=== PATIENT | male | born 1940 | race Caucasian/White ===

== ENCOUNTER 2016-09-06 08:53 | Inpatient (IN) ==
--- NOTE | 2016-09-06 10:07 | Emergency Department Note ---
Fall HPI - General Chief Complaint: Fall Stated Complaint: hip pain from fall Time Seen by Provider: 09/06/16 09:22 Source: patient Mode of arrival: ambulatory - History of Present Illness HPI Narrative: Patient presents with significant other, caregiver. States fall while attempting to transfer to bedside commode. One of several of the last week. Difficulty getting up, pain left pelvis. Additionally, mild confusion with apparent closed head injury, abrasion over the left worship. Patient reports generalized weakness, unable to care for himself at home. states in agreement, reports patient has been staying "I'm ready to ". Hospice consult completed yesterday, does not feel that she can provide the care at home that would be required. Requesting consideration for shelter placement. Generalized weakness, incomplete recovery from hospitalization several weeks ago , extended workup for altered mental status with decreased responsiveness at [facility]. Records requested. - Related Data Home Medications Medication Instructions Recorded Confirmed Pramipexole [Mirapex] 0.5 mg PO TID 01/25/15 09/06/16 Sevelamer [Renvela] 800 mg PO TIDAC 01/25/15 09/06/16 traZODone HCL [Desyrel] 50 mg PO HS 01/25/15 09/06/16 fluoxetine 20 mg tablet 2 tab PO QDAY tab 03/25/15 09/06/16 morphine 15 mg PO Q4HP PRN 04/30/16 09/06/16 Albuterol Sulfate [Proair 90 mcg IH DAILY 08/25/16 09/06/16 Respiclick] Ascorbic Acid [Vitamin C] 250 mg PO DAILY 08/25/16 09/06/16 Budesonide/Formoterol Fumarate 2 puff INH BID 08/25/16 09/06/16 [Symbicort 160-4.5 Mcg Inhaler] Calcium Carbonate [Tums] 750 mg PO AC 08/25/16 09/06/16 Estrogens, Conjugated [Premarin] 5 mg PO DAILY 08/25/16 09/06/16 Furosemide [Lasix] 20 mg PO DAILY 08/25/16 09/06/16 traMADol [Ultram] 50 mg PO TID 08/25/16 09/06/16 Gabapentin [Neurontin] 100 mg PO 09/06/16 Allergies Allergy/AdvReac Type Severity Reaction Status Date / Time No Known Drug Allergies Allergy Verified 09/06/16 09:00 Review of Systems All systems ED: reviewed and negative except as stated. Constitutional: Reports: weakness. Denies: fever, chills Eyes: Denies: eye discharge, vision change Respiratory: Denies: cough, dyspnea Gastrointestinal: Denies: abdominal pain, nausea Fall PMH - Past Medical History Attestation: Yes: The following information was validated with the patient. Medical history: Reports: cancer (melanoma), CHF, COPD, diabetes, hyperlipidemia , hypertension, renal disease (dialysis dependent), other (dialysis pt, recent blood transfusion, MS) - Social History Alcohol use: Reports: Unknown Drug use: Reports: unknown Physical Exam - General Limitations: no limitations General appearance: other (slowed mentation, but alert oriented to person and place) - Head Head exam: other (abrasion left worship, hemostatic) - Eye Eye exam: Present: normal appearance, PERRL - ENT ENT exam: normal exam, mucous membranes dry - Neck Neck exam: Present: full ROM. Absent: tenderness - Chest Chest inspection: Present: normal inspection - Respiratory Respiratory exam: Present: normal lung sounds bilaterally. Absent: respiratory distress - Cardiovascular Cardiovascular exam: Present: regular rate, normal rhythm - Abdominal Exam Abdominal exam: Present: soft. Absent: tenderness - Extremities Exam Extremities exam: Present: normal inspection, other (no leg length discrepancy, chronic 3+ edema) - Back Exam Back exam: Present: normal inspection - Neurological Exam Neurological exam: Present: alert - Psychiatric Psychiatric exam: Present: flat affect - Skin Skin exam: Present: warm, dry, intact Course Vital Signs Temperature 97.4 F L 09/06/16 08:54 Pulse Rate 79 09/06/16 08:54 Respiratory Rate 18 09/06/16 08:54 Blood Pressure 94/51 09/06/16 08:54 Pulse Oximetry (%) 90 09/06/16 08:54 Temperature 97.4 F L 09/06/16 08:54 Pulse Rate 80 09/06/16 14:54 Respiratory Rate 18 09/06/16 08:54 Blood Pressure 95/51 09/06/16 14:54 Pulse Oximetry (%) 99 09/06/16 14:54 Fall - Lab Data Lab results reviewed: Yes I reviewed the patient's lab results. Result diagrams: 09/06/16 10:05 09/06/16 09:50 Lab Results 09/06/16 09/06/16 09/06/16 Range/Units 09:50 10:05 10:05 WBC 6.6 (4.5-11.0) K/mcL RBC 2.50 L (4.50-5.90) M/mcL Hgb 7.4 L (13.5-16.5) g/dL Hct 24.1 L (41.0-55.0) % POC Hct 25.0 L (41.0-55.0) % MCV 96.5 (80.0-100.0) fL MCH 29.8 (26.0-34.0) pg MCHC 30.8 L (31.0-36.0) g/dL RDW 23.8 H (11.5-14.5) % Plt Count 196 (140-440) K/mcL MPV 9.0 (7.4-10.4) fL Gran % 85.2 H (38.0-78.0) % Lymph % (Auto) 4.6 L (15.5-49.0) % Winkler % (Auto) 5.0 (1.0-9.0) % Eos % (Auto) 5.2 (0.0-7.0) % Baso % (Auto) 0 (0.0-2.0) % Gran # 5.7 (1.8-8.0) K/mcL Lymph # 0.3 L (1.5-4.8) K/mcL Winkler # 0.3 (0.1-0.9) K/mcL Eos # 0.3 (0.0-0.7) K/mcL Baso # 0 (0.0-0.3) K/mcL VBG Lactic Acid 1.0 (0.5-2.2) mmol/L POC Sodium 141 (133-145) mmol/L Sodium 140 (133-145) mmol/L POC Potassium 5.0 (3.3-5.1) mmol/L Potassium 5.2 H (3.3-5.1) mmol/L POC Chloride 100 (96-108) mmol/L Chloride 100 (96-108) mmol/L Carbon Dioxide 29 (22-30) mmol/L POC Total CO2 32 H (22-30) mmol/L Anion Gap 11.0 (8-16) POC BUN 45 H (8-23) mg/dl BUN 31 H (8-23) mg/dl Creatinine 4.3 H (0.7-1.2) mg/dl POC Creatinine 4.2 H (0.7-1.2) mg/dl GFR Calculation 12 Glucose 84 (70-105) mg/dL POC Glucose 85 (70-105) mg/dL Calcium 8.2 L (8.6-10.4) mg/dl POC WB Ioniz Calcium 0.97 L (1.16-1.32) mmol/L Total Bilirubin 0.2 (0.0-1.0) mg/dL AST 22 (0-37) U/l ALT 12 (0-40) U/l Alkaline Phosphatase 68 (39-117) U/L Troponin T (0-0.03) ng/ml Total Protein 5.9 (5.9-8.4) gm/dL Albumin 3.3 (3.2-5.2) gm/dL Globulin 2.6 (2.2-3.7) gm/dL Albumin/Globulin Ratio 1.3 (1.0-2.3) 09/06/16 Range/Units 10:05 WBC (4.5-11.0) K/mcL RBC (4.50-5.90) M/mcL Hgb (13.5-16.5) g/dL Hct (41.0-55.0) % POC Hct (41.0-55.0) % MCV (80.0-100.0) fL MCH (26.0-34.0) pg MCHC (31.0-36.0) g/dL RDW (11.5-14.5) % Plt Count (140-440) K/mcL MPV (7.4-10.4) fL Gran % (38.0-78.0) % Lymph % (Auto) (15.5-49.0) % Winkler % (Auto) (1.0-9.0) % Eos % (Auto) (0.0-7.0) % Baso % (Auto) (0.0-2.0) % Gran # (1.8-8.0) K/mcL Lymph # (1.5-4.8) K/mcL Winkler # (0.1-0.9) K/mcL Eos # (0.0-0.7) K/mcL Baso # (0.0-0.3) K/mcL VBG Lactic Acid (0.5-2.2) mmol/L POC Sodium (133-145) mmol/L Sodium (133-145) mmol/L POC Potassium (3.3-5.1) mmol/L Potassium (3.3-5.1) mmol/L POC Chloride (96-108) mmol/L Chloride (96-108) mmol/L Carbon Dioxide (22-30) mmol/L POC Total CO2 (22-30) mmol/L Anion Gap (8-16) POC BUN (8-23) mg/dl BUN (8-23) mg/dl Creatinine (0.7-1.2) mg/dl POC Creatinine (0.7-1.2) mg/dl GFR Calculation Glucose (70-105) mg/dL POC Glucose (70-105) mg/dL Calcium (8.6-10.4) mg/dl POC WB Ioniz Calcium (1.16-1.32) mmol/L Total Bilirubin (0.0-1.0) mg/dL AST (0-37) U/l ALT (0-40) U/l Alkaline Phosphatase (39-117) U/L Troponin T 0.27 H* (0-0.03) ng/ml Total Protein (5.9-8.4) gm/dL Albumin (3.2-5.2) gm/dL Globulin (2.2-3.7) gm/dL Albumin/Globulin Ratio (1.0-2.3) - Radiology Data Radiology results reviewed: Yes I reviewed the patient's radiology results. right periHilar infiltrate - EKG Data EKG attestation: Yes I reviewed and interpreted this EKG. Disposition Clinical Impression: Multiple sclerosis, primary chronic progressive, Generalized weakness, Chronic kidney disease with end stage renal failure on dialysis Right middle lobe pneumonia Qualifiers: Pneumonia type: due to unspecified organism Qualified Code(s): J18.1 - Lobar pneumonia, unspecified organism Fall Qualifiers: Encounter type: initial encounter Qualified Code(s): W19.XXXA - Unspecified fall, initial encounter Summary: family unable to Provide care at home Patient with advanced multiple sclerosis, approaching end-stage; superimposed dementia Acute pneumonia causing decompensation complicated by dialysis dependence discussed with Dr. Ponce, willing to follow, requesting Dr. Tavarez as primary Disposition: Xfer As Inpt ([facility]) Condition: Fair Referrals: Arpan Ponce MD [Primary Care Provider] -
--- NOTE | 2016-09-06 10:25 | XRay Report ---
CLINICAL INFORMATION: Cough COMPARISON: 11/03/2015 chest x-ray. FINDINGS: Mild cardiomegaly is stable. Mediastinum and pulmonary vessels are normal. A small infiltrate has developed in the right infrahilar region. No effusions. Bones and soft tissues normal IMPRESSION: Small right infrahilar infiltrate. Patient has known lower lobe bronchiectasis on prior chest CT predisposing to pneumonia. Interpreted and Authenticated by: Arsenio Carpenter 09/06/16
[2016-09-06] MEDS ORDERED: HYDROmorphone 2 MG/ML SYRINGE IV PRN (10:28)
[2016-09-06] MEDS ORDERED: morphine 15 MG TAB.SR.12H PO ONE ×2 (10:37→10:50)
[2016-09-06 10:53] LABS: ALT/SGPT 12 U/l (0-40); Albumin 3.3 gm/dL (3.2-5.2); Albumin/Globulin Ratio 1.3 (1.0-2.3); Alkaline Phosphatase 68 U/L (39-117); Blood Urea Nitrogen 31 mg/dl (8-23)
[2016-09-06 10:55] LABS: Basophils # (Auto) 0 K/mcL (0.0-0.3); Basophils % (Auto) 0 % (0.0-2.0); Eosinophils # (Auto) 0.3 K/mcL (0.0-0.7); Eosinophils % (Auto) 5.2 % (0.0-7.0); Granulocytes % (Auto) 85.2 % (38.0-78.0); Lymphocytes # (Auto) 0.3 K/mcL (1.5-4.8); Lymphocytes % (Auto) 4.6 % (15.5-49.0); Mean Cell Volume 96.5 fL (80.0-100.0); Mean Corpuscular HGB Conc 30.8 g/dL (31.0-36.0); Mean Corpuscular Hemoglobin 29.8 pg (26.0-34.0); Monocytes # (Auto) 0.3 K/mcL (0.1-0.9); Platelet Count 196 K/mcL (140-440); Red Cell Distribution Width 23.8 % (11.5-14.5)
--- NOTE | 2016-09-06 11:45 | Cat Scan Report ---
CLINICAL INFORMATION: ] Injury COMPARISON: None. TECHNIQUE: 2.5 mm helical slices were obtained in the skull base to vertex. Following reconstruction, axial reformatted images were reviewed at bone and parenchymal windows. FINDINGS: The ventricles, sulci, fissures, and cisterns are normal in size and configuration for age. No extra-axial fluid collections are identified. The cerebrum, brainstem and cerebellum are unremarkable. There is no evidence of hemorrhage, mass effect, or edema. Bone windows show an 11 mm intramedullary lucent lesion within the left occipital calvaria IMPRESSION: Minimal age-related atrophy - no intracerebral hemorrhage or other acute posttraumatic change. 11 mm intramedullary lucent lesion in the left occipital calvaria - likely benign. If there is no focal pain in this region, suggest follow-up head CT in six months to ensure stability Interpreted and Authenticated by: Arsenio Carpenter 09/06/16
--- NOTE | 2016-09-06 11:54 | Cat Scan Report ---
CLINICAL INFORMATION: Trauma COMPARISON: 03/18/[address] TECHNIQUE: 2.5 mm helical slices were obtained from the mid L4 through the subtrochanteric regions. Following reconstruction, 2.5 mm sagittal, coronal and axial reformations were processed. The exam was reviewed in bone and soft tissue windows. FINDINGS: There is no fracture or other significant focal osseous abnormalities appreciated. Both SI and hip joints are normal with alignment arthritic change. The distal portion of a significant infrarenal abdominal aortic aneurysm is partially included on the film. Diameter is 4.4 cm which has increased from previous study. The diameter at that time was 4.1 cm. There is heavy calcific plaque in the iliac arteries. The prostate, seminal vesicles, urinary bladder are normal. The visualized small and large bowel are unremarkable. No free fluid IMPRESSION: 1. No fracture or acute posttraumatic change 2. Partial visualization of an infrarenal abdominal aortic aneurysm - diameter. 4.5 cm which has increased from previous study. Suggest aortic ultrasound to evaluate complete abdominal aortic dimensions. Interpreted and Authenticated by: Arsenio Carpenter 09/06/16
[2016-09-06] MEDS ORDERED: LEVOFLOXACIN 750 MG/150 ML BAG IV ONE (12:51)
--- NOTE | 2016-09-06 15:34 | Consultation ---
DATE OF CONSULTATION: 09/06/2016 REFERRING PHYSICIAN: Greg Contreras MD. REASON FOR CONSULTATION: Chronic end-stage renal disease. HISTORY OF PRESENT ILLNESS: The patient is a 75-year-old gentleman with past medical history significant for end-stage renal disease on hemodialysis at [facility]. He dialyzes Mondays, Wednesdays, and Fridays. He has been feeling ill lately. He has chronic blood loss thought to be due to the AVMs for which he takes Premarin 5 mg once daily. His pain has been progressively getting worse in his lower extremities. Apparently he fell in the bathroom this morning. He has not been able to pick himself up. He needs more and more assistance from the family members to do his daily activities. For this reason, he was brought into the emergency room. In the emergency room, he was found to have pneumonia and low hemoglobin. For that reason, he is hospitalized. PAST MEDICAL HISTORY: Significant for: 1. End-stage renal disease on hemodialysis on Mondays, Wednesdays, and Fridays at [facility]. 2. Type 2 diabetes. 3. Multiple sclerosis. 4. History of volume overload, chronic 5. Peripheral neuropathy. SOCIAL HISTORY: He lives at home with his and son. He smokes still about a pack per day. No history of alcohol or drug use. FAMILY HISTORY: Noncontributory. CURRENT MEDICATIONS AT HOME: 1. Albuterol two times a day. 2. Ascorbic acid 250 mg once daily. 3. Aspirin 81 mg daily. 4. Fluoxetine 20 mg daily. 5. Lasix 20 mg daily. 6. Gabapentin 100 mg three times daily. 7. Pramipexole 0.5 mg p.o. three times daily. 8. Coumadin 5 mg once daily. 9. Renvela 800 mg t.i.d. with meals. 10. Tramadol 50 mg t.i.d. p.r.n. 11. Trazodone 50 mg at bedtime. 12. Tums 750 mg once at night. REVIEW OF SYSTEMS: Ten points were reviewed and as indicated in History of Present Illness. PHYSICAL EXAMINATION: GENERAL: Alert, oriented x3. He is not in any distress. He tends to fall asleep fairly quickly. VITAL SIGNS: Blood pressure is 90 to 110 systolic with a diastolic in the 50s, pulse rates have been in the 80s, O2 sat 100% on room air. HEENT: PERRLA. EOMI. No cyanosis or icterus. Fundus examination is not performed. External and tympanic membranes appear normal. Oral cavity appears normal. Normal mucosa. NECK: Supple. No jugular venous distention. No lymphadenopathy or thyromegaly. LUNGS: Decreased air entry bilaterally. No rales or rhonchi heard. CARDIAC: S1, S2 heard. No S3, S4. He has a 2/6 systolic murmur. ABDOMEN: Soft, nontender. No organomegaly. Positive bowel sounds. EXTREMITIES: They are wrapped up to the mid luo. He has 2+ edema bilaterally. NEURO: He does fall asleep fairly quickly, but otherwise moving all four extremities and no obvious deficits. LABORATORY DATA: White count is 6.6, hemoglobin of 7.4 and a platelet count of 196. Sodium 141, potassium 5.0, chloride of 100, CO2 of 29, BUN of 45, creatinine of 4.3 with a calcium of 8.2. Troponin was 0.27. ASSESSMENT AND PLAN: 1. End-stage renal disease on hemodialysis. He is due for dialysis tomorrow. I have written orders for it. 2. Anemia. He has ongoing GI loss. I have requested a unit of blood transfusion today and another in dialysis tomorrow by Dr. Tavarez. 3. Right and infrahilar infiltrates, management per Dr. Tavarez. ANAHI:bennie Job ID: [id number] Doc ID: [id number] Arpan Tavarez MD
[2016-09-06] MEDS ORDERED: VANCOMYCIN PER PHARMACY IV ONE (16:05)
[2016-09-06] MEDS ORDERED: ONDANSETRON 4 MG/2 ML VIAL IV PRN (16:05)
[2016-09-06] MEDS ORDERED: ACETAMINOPHEN 325 MG TABLET PO PRN (16:05)
[2016-09-06] MEDS: INSULIN LISPRO 1 UNIT/0.01 ML UNIT SQ SCH ×2 (16:56→20:43)
[2016-09-06] MEDS: PIPERACILLIN SODIUM/TAZOBACTAM 2.25 GM in DEXTROSE 5% IN WATER 50 ML IV SCH (17:00)
[2016-09-06] MEDS ORDERED: VANCOMYCIN 1,500 MG in 0.9 % SODIUM CHLORIDE 500 ML IV ONE (18:00)
[2016-09-06] MEDS: SENNOSIDES/DOCUSATE SODIUM 1 TAB TABLET PO SCH ×2 (20:40→21:26)
[2016-09-06] MEDS: HEPARIN 5,000 UNIT/ML VIAL SQ SCH (20:40)
[2016-09-07] MEDS: PIPERACILLIN SODIUM/TAZOBACTAM 2.25 GM in DEXTROSE 5% IN WATER 50 ML IV SCH ×2 (05:56→22:14)
[2016-09-07] MEDS: 0.9 % SODIUM CHLORIDE 10 ML SYRINGE IV SCH ×4 (05:57→22:14)
[2016-09-07 06:15] LABS: Mean Cell Volume 97.4 fL (80.0-100.0); Mean Corpuscular HGB Conc 30.3 g/dL (31.0-36.0); Mean Corpuscular Hemoglobin 29.5 pg (26.0-34.0); Platelet Count 168 K/mcL (140-440); RBC 2.33 M/mcL (4.50-5.90); Red Cell Distribution Width 23.2 % (11.5-14.5)
[2016-09-07] MEDS ORDERED: 0.9 % SODIUM CHLORIDE 250 ML IV SCH ×2 (06:30→10:00)
[2016-09-07 06:58] LABS: ALT/SGPT 10 U/l (0-40); Albumin 3.2 gm/dL (3.2-5.2); Albumin/Globulin Ratio 1.7 (1.0-2.3); Alkaline Phosphatase 66 U/L (39-117); Bilirubin,Direct < 0.2 mg/dL (0.0-0.3); Blood Urea Nitrogen 45 mg/dl (8-23); Gamma Glutamyl Transpeptidase 6 U/L (8-61); Magnesium 2.4 mg/dL (1.6-2.5); Phosphorous 9.2 mg/dL (2.7-4.5)
[2016-09-07] MEDS: INSULIN LISPRO 1 UNIT/0.01 ML UNIT SQ SCH ×4 (07:25→21:09)
[2016-09-07] MEDS: DEXTROSE 50% 50 ML VIAL IV PRN (07:26)
[2016-09-07 08:49] LABS: Anisocytosis 2+ (NONE SEEN); Eosinophils % (Manual) 4 % (0-7); Lymphocytes % 6 % (15-49); Monocytes % (Manual) 8 % (1-9); Platelet Estimate NORMAL (NORMAL); RBC Morphology ABNORM (NORMAL); Segmented Neutrophils % 82 % (38-78)
[2016-09-07] MEDS: HEPARIN 5,000 UNIT/ML VIAL SQ SCH ×2 (09:56→21:09)
--- NOTE | 2016-09-07 10:05 | Internal Med Progress Note ---
Medical - PN: Subj Patient information: Note initiated : 09/07/16 at 10:05 am Service Date, if different from initiated Date: [] Patient: Peter Lam 75 y/o M admitted on 09/06/16 for Hip Pain. Chief Complaint: [] Interval history: 09/06- patient admitted with lower lobe pneumonia/hyperkalemia. Underlying ESRD on HD. Severe anemia. Admitted to telemetry. On antibiotic coverage. CuRB- 65 score 3 mandating inpatient hospitalization. wound care consulted for bilateral lower extremity wounds sustained during recurrent falls 09/07- continue antibiotic coverage. Ongoing hemodialysis per nephrology. Aggressive PT OT to evaluate her gait and safety. Wound care consulted for bilateral worsening wounds. Clinically stable. Continues to be confused. No overnight telemetry events. No concerns expressed by nursing staff. Patient denies chest pain shortness of breath overnight fever chills. - Constitutional Vitals: Vital Signs Temp Pulse Resp BP Pulse Ox 97.8 F 87 16 116/63 93 09/07/16 08:00 09/07/16 04:00 09/07/16 08:00 09/07/16 08:00 09/07/16 08:00 Period Temp Pulse Resp BP Sys/Mckay Pulse Ox Last 24 Hr 97.3 F-97.9 F 78-87 16-20 94-121/47-87 92-100 Intake and Output 09/06/16 09/07/16 09/07/16 21:59 05:59 13:59 Intake Total 700 / 700 0 / 0 50 / 50 Output Total 0 / 0 Balance 700 / 700 0 / 0 50 / 50 Weight 201 lb 11.2 oz Intake & Output: Intake & Output 09/06/16 09/07/16 09/07/16 21:59 05:59 13:59 Intake Total 700 / 700 0 / 0 50 / 50 Output Total 0 / 0 Balance 700 / 700 0 / 0 50 / 50 Weight 201 lb 11.2 oz Intake: IV 700 / 700 50 / 50 Dextrose 5% in Water 50 50 / 50 50 / 50 ml @ 100 mls/hr IV Q12H ZITA with Zosyn 2.25 gm Rx #:[id number] Sodium Chloride 0.9% 500 500 / 500 ml @ 333.3 mls/hr IV ONCE ONE with Vancomycin 1, 500 mg Rx#:[id number] Oral 0 / 0 Output: Void Amount 0 / 0 Other: # Bowel Movements 0 General appearance: cooperative, no acute distress Exam: alert but disoriented to place and time No anxiety Nonlabored breathing lower extremity wounds covered in wraps Medical - PN: Obj Da - Labs CBC & Chem 7: 09/07/16 04:05 09/07/16 04:05 Labs: Abnormal Lab Results 09/07/16 09/07/16 04:05 04:05 RBC 2.33 L Hgb 6.9 L* Hct 22.7 L MCHC 30.3 L RDW 23.2 H Seg Neutrophils % 82 H Lymphocytes % 6 L RBC Morphology Abnorm A Anisocytosis 2+ A Potassium 5.6 H BUN 45 H Creatinine 5.3 H* Glucose 57 L Calcium 7.8 L Phosphorus 9.2 H* GGT 6 L Total Protein 5.1 L Globulin 1.9 L Meds: Medications Acetaminophen (Tylenol) 650 mg PO Q4-6HP PRN PRN Reason: PAIN/FEVER > 101 Ascorbic Acid (Vitamin C) 250 mg PO DAILY [facility] Calcium Carbonate/Glycine (Tums) 750 mg PO AC [facility] Dextrose (Dextrose 50%) 0 ml IV UD PRN PRN Reason: Hypoglycemia Last Admin: 09/07/16 07:26 Dose: 25 ml Diagnostic Test (Pha) (Accu-Chek) 1 each FS ACHS [facility] Last Admin: 09/07/16 09:21 Dose: 1 each Estrogens Conjugated (Premarin) 5 mg PO DAILY [facility] Furosemide (Lasix) 20 mg PO DAILY [facility] Gabapentin (Neurontin) 100 mg PO DAILY [facility] Heparin Sodium (Porcine) (Heparin) 5,000 unit SQ Q12 [facility] Last Admin: 09/07/16 09:56 Dose: 5,000 unit Hydromorphone HCl (Dilaudid) 0 mg IV Q4HP PRN PRN Reason: Pain Piperacillin Sod/Tazobactam (Sod 2.25 gm/ Dextrose) 50 mls @ 100 mls/hr IV Q12H [facility] Last Infusion: 09/07/16 06:35 Dose: Infused Sodium Chloride (Sodium Chloride 0.9%) 250 mls @ 20 mls/hr IV .[id number] [facility] Stop: 09/07/16 18:59 Last Admin: 09/07/16 09:22 Dose: 20 mls/hr Sodium Chloride (Sodium Chloride 0.9%) 250 mls @ 20 mls/hr IV .[id number] [facility] Stop: 09/07/16 22:29 Insulin Human Lispro (Humalog) 0 unit SQ ACHS [facility] PRN Reason: Protocol Last Admin: 09/07/16 07:25 Dose: Not Given Morphine Sulfate (Morphine) 15 mg PO Q4HP PRN PRN Reason: 338.29 Non-Formulary Medication (Albuterol Sulfate [Proair Respiclick]) 90 mcg IH DAILY [facility] Non-Formulary Medication (Budesonide/Formoterol Fumarate [Symbicort 160-4.5 Mcg Inhaler]) 2 puff INH BID [facility] Non-Formulary Medication (Fluoxetine Hcl [Sarafem]) 2 tab PO QDAY [facility] Ondansetron HCl (Zofran) 4 mg IV Q4-6HP PRN PRN Reason: Nausea And Vomiting Pramipexole Dihydrochloride (Mirapex) 0.5 mg PO TID [facility] Senna/Docusate Sodium (Senna Plus Tablet) 1 tab PO [facility] Last Admin: 09/06/16 21:26 Dose: Not Given Sevelamer Carbonate (Renvela) 800 mg PO TIDAC [facility] Sodium Chloride (Saline Flush) 10 ml IV Q8 [facility] Last Admin: 09/07/16 07:27 Dose: 10 ml Tramadol HCl (Ultram) 50 mg PO TID [facility] Trazodone HCl (Desyrel) 50 mg PO [facility] Medical - PN: A/P - Time Spent With Patient Total time spent is greater than 50% in coordination of care (as documented) at patient's floor/unit and/or counseling patient: 25 - 35 minutes - Narrative A/P Narrative: * Nosocomial pneumonia-continue vancomycin and Zosyn and Levaquin. Await cultures. Curb 65 score 3 with mental status change * mental status change secondary to above * Bilateral lower extremity wounds-Wound care consulted. * Recurrent falls- Continue aggressive PT OT for gait eval * Hyperkalemia management nephrology. On hemodialysis * ESRD on HDManaged by Dr. Ponce * anxiety-home meds * DM type II-prandial insulin * due to prophylaxis-heparin Plan * Antibiotic coverage * Nephrology and wound care consult * PT OT * Pre-existing medical condition management as above * telemetry monitoring Medical - PN: Qual - VTE Deep Vein Thrombosis/Pulmonary Embolism Present on Admission: No
[2016-09-07] MEDS ORDERED: ALBUTEROL SULFATE 1 PUFF INHALER INH PRN (10:12)
--- NOTE | 2016-09-07 10:20 | Nephrology Progress Note ---
Subjective Patient information: Note initiated : 09/07/16 at 10:16 am Service Date, if different from initiated Date: [] Patient: Peter Lam 75 y/o M admitted on 09/06/16 for Hip Pain. Chief Complaint: He is somewhat sleepy. His leg pain is better. Denies any other complaints. Objective - Vital Signs Vital signs: Vital Signs Temp Pulse Pulse Resp BP BP Pulse Ox 09/07/16 08:00 97.8 F 16 116/63 93 09/07/16 07:58 92 09/07/16 04:00 97.8 F 87 16 121/84 94 09/07/16 00:00 97.9 F 79 18 118/87 95 09/06/16 20:30 114/54 09/06/16 20:00 97.4 F L 86 18 101/47 93 09/06/16 19:47 94 09/06/16 18:00 20 09/06/16 16:12 100 09/06/16 16:00 97.3 F L 81 78 18 94/51 116/58 100 Intake and Output 09/06/16 09/07/16 09/07/16 21:59 05:59 13:59 Intake Total 700 / 700 0 / 0 50 / 50 Output Total 0 / 0 Balance 700 / 700 0 / 0 50 / 50 Intake: IV 700 / 700 50 / 50 Dextrose 5% in Water 50 50 / 50 50 / 50 ml @ 100 mls/hr IV Q12H ZITA with Zosyn 2.25 gm Rx #:[id number] Sodium Chloride 0.9% 500 500 / 500 ml @ 333.3 mls/hr IV ONCE ONE with Vancomycin 1, 500 mg Rx#:[id number] Oral 0 / 0 Output: Void Amount 0 / 0 Other: # Bowel Movements 0 Weight 201 lb 11.2 oz Intake & Output: Intake & Output 09/06/16 09/07/16 09/07/16 21:59 05:59 13:59 Intake Total 700 / 700 0 / 0 50 / 50 Output Total 0 / 0 Balance 700 / 700 0 / 0 50 / 50 Weight 201 lb 11.2 oz Intake: IV 700 / 700 50 / 50 Dextrose 5% in Water 50 50 / 50 50 / 50 ml @ 100 mls/hr IV Q12H ZITA with Zosyn 2.25 gm Rx #:[id number] Sodium Chloride 0.9% 500 500 / 500 ml @ 333.3 mls/hr IV ONCE ONE with Vancomycin 1, 500 mg Rx#:[id number] Oral 0 / 0 Output: Void Amount 0 / 0 Other: # Bowel Movements 0 - General Appearance General appearance: well-developed EENT: ATNC Neck: no JVD Cardiology: mid-systolic murmur Gastrointestinal: normoactive bowel sounds Integumentary: no rash - Lab 09/07/16 04:05 09/07/16 04:05 Most recent lab results Calcium 7.8 mg/dl (8.6-10.4) L 09/07/16 04:05 Phosphorus 9.2 mg/dL (2.7-4.5) H* 09/07/16 04:05 Magnesium 2.4 mg/dL (1.6-2.5) 09/07/16 04:05 Assessment and Plan (1) Chronic kidney disease with end stage renal failure on dialysis Status: Acute Comment: Patient will have hemodialysis today for 4 hours with 3 liters of fluid removal. Will dialyse again tomorrow as he is sleepy and possibly uremic/sedated. HB low, he has known bleeding. Will transfuse 2 units of PRBC. All other medical problems managed by Dr. Tavarez. I have written orders for tomorrow. I will see the patient on Saturday if he is still in the hospital. Please contact me if there are any questions.
--- NOTE | 2016-09-07 10:49 | History and Physical Report ---
DATE OF ADMISSION: 09/06/2016 REASON FOR ADMISSION: Fall, weakness, shortness of breath, hip pain. HISTORY OF CHIEF COMPLAINT: The patient is a 75-year-old with known history of ESRD on hemodialysis managed as an outpatient by Dr. Ponce. Over the last few days, the patient has been getting increasingly weak, unable to function and has sustained multiple falls. Family, including , Leyda and son brought him to the [facility] ER due to above symptoms and increasing concerns. The patient has had progressive decline in overall functionality due to underlying ESRD on HD. He has been contemplating on palliation and discontinuation of hemodialysis per recent conversation with Nephrology. However, at this time family would want aggressive measures to treat presenting symptoms. In the ER, initial workup was significant for potassium of 5.2, along with basilar infiltrates suggestive of pneumonia and fluid overload status. Nephrology was consulted while Hospitalist Service was requested for admission. At the time of examination, the patient is confused. He is oriented to person but not place or time. He is able to provide some of the history, including answer to leading questions. He denies chest pain, diarrhea, dysuria. He denies joint swelling. He endorses to multiple falls and lower extremity pain, along with multiple abrasions sustained during the falls. He denies chest palpitation, drenching sweats, chills, or glandular swelling. He does endorse to generalized edema. REVIEW OF SYSTEMS: Ten-point review of system was performed and negative except the ones discussed above. PAST MEDICAL HISTORY: 1. ESRD on hemodialysis. 2. Restless leg syndrome. 3. Anxiety disorder. 4. Chronic pain. 5. Degenerative joint disease. 6. Neuropathy. 7. Diabetes. 8. COPD. 9. History of congestive heart failure. 10. Hypertension. 11. History of multiple sclerosis. 12. Chronic anemia requiring multiple blood transfusions. FAMILY HISTORY: Noncontributory. SOCIAL HISTORY: The patient is to Leyda and lives in [place]. Sees winder operator Dr. Ponce for hemodialysis. Patient is mostly wheelchair bound but able to ambulate using a walker. He is an active smoker. No history of alcohol or substance abuse. ALLERGIES: None significant. CURRENT MEDICATIONS: 1. Gabapentin 100 mg. 2. Tramadol 50 mg. 3. Furosemide 20 mg. 4. Symbicort inhaled b.i.d. 5. Morphine 15 mg p.o. q.4h. 6. Fluoxetine 40 mg daily. 7. Trazodone 50 mg. 8. Sevelamer 800 mg. 9. Pramipexole 0.5 mg t.i.d. PHYSICAL EXAMINATION: GENERAL: The patient is alert, anxious but disoriented. BMI 28. Height 5 feet 11 inches. VITAL SIGNS: Blood pressure 180/87, respiratory rate 18, temperature 97.9, pulse 79, and saturation 95% on 4 liters of oxygen. HEENT: Pupils symmetric. Oral cavity is dry. No ear or nose discharge. Head is normocephalic. NECK: No lymphadenopathy. HEART: S1, S2, tachycardia noted. Ejection systolic murmur grade 1. Diminished breath sounds with late inspiratory crackles bilateral posterior chest and absent breath sounds posterior inferior chest. ABDOMEN: Soft and nontender. UPPER EXTREMITIES: Significant for surgical scar bilateral cubital fossa, lymphedema. LOWER EXTREMITIES: Significant for abrasion, excoriation and ulceration bilateral lower extremities below the knee involving the luo and lateral aspect of the leg. SKIN: Otherwise, occasional bruises and lesions as described lower extremity. PSYCHIATRIC: Anxious, fatigued, disoriented to place and time. NEURO: Moving all four extremities. However, higher functions were affected due to patient's mental status change. LABS AND IMAGING: CT head: No acute process. CT pelvis: No acute fracture. X-ray chest: Small right infiltrate. White count 6.6, hemoglobin 7.4. Lactic acid 1.0. Sodium 141, potassium 5.2, creatinine 4.3, BUN 45. LFTs unremarkable. Troponin 0.27. ASSESSMENT AND PLAN: A 75-year-old admitted with mental status change, lower lobe pneumonia, along with hypokalemia. 1. Lower lobe pneumonia, aspiration versus nosocomial. Start patient on antibiotic coverage, including vancomycin, Levaquin and Zosyn for empiric Gram negative/MRSA coverage. Continue pulmonary toilet, bronchodilators. 2. Mental status change. Likely secondary to pneumonia with presenting CURB-65 score of 3 mandating hospitalization. 3. ESRD on hemodialysis. Continue management per Nephrology. 4. Hyperkalemia. Continue management per Nephrology. 5. History of COPD. Continue bronchodilators. 6. Diabetes mellitus type 2. Continue sliding scale insulin. 7. Anxiety disorder. Continue SSRI. 8. Lower extremity bilateral wounds. Consult Wound Care. PLAN FOR TODAY: 1. Admit as telemetry inpatient. 2. Nephrology consultation. 3. Wound Care consult for lower extremity wounds. 4. PT, OT for evaluation in light of recent recurrent falls. 5. Preexisting medical condition management as above. 6. Antibiotic coverage. AA:[email or web address] Job ID: [id number] Doc ID: [id number] Livan Ponce MD [facility]ERY[facility]
[2016-09-07] MEDS: SEVELAMER 800 MG TABLET PO SCH ×2 (15:07→17:30)
[2016-09-07] MEDS: CALCIUM CARBONATE 500 MG TAB.CHEW PO SCH ×2 (15:08→17:00)
[2016-09-07] MEDS: traMADol 50 MG TABLET PO SCH ×2 (15:25→20:17)
[2016-09-07] MEDS: NICOTINE 21 MG PATCH TOPICAL SCH (15:27)
[2016-09-07] MEDS: PRAMIPEXOLE 0.25 MG TABLET PO SCH ×2 (15:27→20:17)
--- NOTE | 2016-09-07 19:54 | General Surgery Consult Note ---
History of Present Illness Patient information: Note initiated : 09/07/16 at 7:53 pm Service Date, if different from initiated Date: [] Patient: Peter Lam 75 y/o M admitted on 09/06/16 for Hip Pain/Pneumonia, Low Hemoglobin. Chief Complaint: [] Consult date: 09/07/16 Reason for consult: other (Wound care consult.) Requesting physician: Livan Tavarez Review of Systems - Genitourinary other (ESRD on Regular hemodialysis) - Integumentary other (Epidermis / dermis skin lesions scattered over both legs and left elbow. Patient is regularly followed at wound center.) - Neurological abnormal gait, frequent falls Medications and Allergies Home Medications Medication Instructions Recorded Confirmed Type Pramipexole [Mirapex] 0.5 mg PO TID 01/25/15 09/06/16 History Sevelamer [Renvela] 800 mg PO TIDAC 01/25/15 09/06/16 History traZODone HCL [Desyrel] 50 mg PO HS 01/25/15 09/06/16 History fluoxetine 20 mg tablet 2 tab PO QDAY tab 03/25/15 09/06/16 History morphine 15 mg PO Q4HP PRN 04/30/16 09/06/16 History Albuterol Sulfate [Proair 90 mcg IH DAILY 08/25/16 09/06/16 History Respiclick] Ascorbic Acid [Vitamin C] 250 mg PO DAILY 08/25/16 09/06/16 History Budesonide/Formoterol Fumarate 2 puff INH BID 08/25/16 09/06/16 History [Symbicort 160-4.5 Mcg Inhaler] Calcium Carbonate [Tums] 750 mg PO AC 08/25/16 09/06/16 History Estrogens, Conjugated [Premarin] 5 mg PO DAILY 08/25/16 09/06/16 History Furosemide [Lasix] 20 mg PO DAILY 08/25/16 09/06/16 History traMADol [Ultram] 50 mg PO TID 08/25/16 09/06/16 History Gabapentin [Neurontin] 100 mg PO TID 09/06/16 09/08/16 History Clopidogrel Bisulfate [Plavix] 75 mg PO DAILY 09/08/16 09/08/16 History buPROPion HCL [Bupropion HCl Sr] 150 mg PO BID 09/08/16 09/08/16 History Allergies Allergy/AdvReac Type Severity Reaction Status Date / Time No Known Drug Allergies Allergy Verified 09/06/16 09:00 Exam Temp Pulse Resp BP Pulse Ox 98.4 F 85 20 131/60 98 09/07/16 16:00 09/07/16 16:00 09/07/16 16:00 09/07/16 16:00 09/07/16 16:00 Results - Labs 09/08/16 04:05 09/08/16 04:05 Abnormal lab results 09/07/16 09/07/16 Range/Units 04:05 04:05 RBC 2.33 L (4.50-5.90) M/mcL Hgb 6.9 L* (13.5-16.5) g/dL Hct 22.7 L (41.0-55.0) % MCHC 30.3 L (31.0-36.0) g/dL RDW 23.2 H (11.5-14.5) % Seg Neutrophils % 82 H (38-78) % Lymphocytes % 6 L (15-49) % RBC Morphology Abnorm A (NORMAL) Anisocytosis 2+ A (NONE SEEN) Potassium 5.6 H (3.3-5.1) mmol/L BUN 45 H (8-23) mg/dl Creatinine 5.3 H* (0.7-1.2) mg/dl Glucose 57 L (70-105) mg/dL Calcium 7.8 L (8.6-10.4) mg/dl Phosphorus 9.2 H* (2.7-4.5) mg/dL GGT 6 L (8-61) U/L Total Protein 5.1 L (5.9-8.4) gm/dL Globulin 1.9 L (2.2-3.7) gm/dL Diabetes panel 09/07/16 Range/Units 04:05 Sodium 145 (133-145) mmol/L Potassium 5.6 H (3.3-5.1) mmol/L Chloride 101 (96-108) mmol/L Carbon Dioxide 28 (22-30) mmol/L BUN 45 H (8-23) mg/dl Creatinine 5.3 H* (0.7-1.2) mg/dl Glucose 57 L (70-105) mg/dL Calcium 7.8 L (8.6-10.4) mg/dl AST 12 (0-37) U/l ALT 10 (0-40) U/l Alkaline Phosphatase 66 (39-117) U/L Total Protein 5.1 L (5.9-8.4) gm/dL Albumin 3.2 (3.2-5.2) gm/dL Triglycerides 118 (<150) mg/dl Calcium panel 09/07/16 Range/Units 04:05 Calcium 7.8 L (8.6-10.4) mg/dl Phosphorus 9.2 H* (2.7-4.5) mg/dL Albumin 3.2 (3.2-5.2) gm/dL Pituitary panel 09/07/16 Range/Units 04:05 Sodium 145 (133-145) mmol/L Potassium 5.6 H (3.3-5.1) mmol/L Chloride 101 (96-108) mmol/L Carbon Dioxide 28 (22-30) mmol/L BUN 45 H (8-23) mg/dl Creatinine 5.3 H* (0.7-1.2) mg/dl Glucose 57 L (70-105) mg/dL Calcium 7.8 L (8.6-10.4) mg/dl Adrenal panel 09/07/16 Range/Units 04:05 Sodium 145 (133-145) mmol/L Potassium 5.6 H (3.3-5.1) mmol/L Chloride 101 (96-108) mmol/L Carbon Dioxide 28 (22-30) mmol/L BUN 45 H (8-23) mg/dl Creatinine 5.3 H* (0.7-1.2) mg/dl Glucose 57 L (70-105) mg/dL Calcium 7.8 L (8.6-10.4) mg/dl Total Bilirubin 0.3 (0.0-1.0) mg/dL AST 12 (0-37) U/l ALT 10 (0-40) U/l Alkaline Phosphatase 66 (39-117) U/L Total Protein 5.1 L (5.9-8.4) gm/dL Albumin 3.2 (3.2-5.2) gm/dL All other labs normal. Assessment and Plan (1) Abrasion Scattered skin abrasions both legs and left elbow. See wound care orders. Status: Chronic Priority: Low
[2016-09-07] MEDS: traZODone HCL 50 MG TABLET PO SCH (20:18)
[2016-09-07] MEDS: Budesonide/Formoterol Fumarate [Symbicort] 160/4.5 mcg Inhaler INH SCH (21:09)
[2016-09-07] MEDS: SENNOSIDES/DOCUSATE SODIUM 1 TAB TABLET PO SCH (21:09)
[2016-09-07] MEDS: HYDROmorphone 2 MG/ML SYRINGE IV PRN (22:13)
[2016-09-08] MEDS: morphine 15 MG TABLET PO PRN ×2 (01:30→18:39)
[2016-09-08 06:15] LABS: Mean Cell Volume 94.8 fL (80.0-100.0); Mean Corpuscular HGB Conc 31.2 g/dL (31.0-36.0); Mean Corpuscular Hemoglobin 29.6 pg (26.0-34.0); Platelet Count 152 K/mcL (140-440); RBC 2.86 M/mcL (4.50-5.90); Red Cell Distribution Width 21.5 % (11.5-14.5)
[2016-09-08 06:55] LABS: ALT/SGPT 9 U/l (0-40); Albumin/Globulin Ratio 1.3 (1.0-2.3); Alkaline Phosphatase 63 U/L (39-117); Anisocytosis 2+ (NONE SEEN); Band Neutrophils % 1 % (0-10); Bilirubin,Direct < 0.2 mg/dL (0.0-0.3); Blood Urea Nitrogen 20 mg/dl (8-23); Eosinophils % (Manual) 3 % (0-7); Gamma Glutamyl Transpeptidase 8 U/L (8-61); Lymphocytes % 7 % (15-49); Magnesium 2.1 mg/dL (1.6-2.5); Monocytes % (Manual) 5 % (1-9); Ovalocytes 2+ (NONE SEEN); Phosphorous 5.9 mg/dL (2.7-4.5); Platelet Estimate NORMAL (NORMAL); RBC Morphology ABNORM (NORMAL); Segmented Neutrophils % 84 % (38-78); Uric Acid 3.9 mg/dL (2.5-8.0)
[2016-09-08] MEDS ORDERED: ALBUTEROL SULFATE 2.5 MG/3 ML NEBULIZER ONE (07:43)
[2016-09-08] MEDS: 0.9 % SODIUM CHLORIDE 10 ML SYRINGE IV SCH ×5 (07:45→21:28)
[2016-09-08] MEDS: HYDROmorphone 2 MG/ML SYRINGE IV PRN ×3 (07:45→21:22)
[2016-09-08] MEDS: INSULIN LISPRO 1 UNIT/0.01 ML UNIT SQ SCH ×4 (08:06→21:27)
[2016-09-08] MEDS: CALCIUM CARBONATE 500 MG TAB.CHEW PO SCH ×3 (08:07→17:28)
[2016-09-08] MEDS: SEVELAMER 800 MG TABLET PO SCH ×3 (08:10→21:26)
[2016-09-08] MEDS: PIPERACILLIN SODIUM/TAZOBACTAM 2.25 GM in DEXTROSE 5% IN WATER 50 ML IV SCH ×2 (09:30→21:25)
[2016-09-08] MEDS: buPROPion 150 MG TAB.SR.12H PO SCH ×2 (10:19→21:25)
[2016-09-08] MEDS: HEPARIN 5,000 UNIT/ML VIAL SQ SCH ×2 (10:26→21:23)
[2016-09-08] MEDS: Budesonide/Formoterol Fumarate [Symbicort] 160/4.5 mcg Inhaler INH SCH ×2 (10:27→21:27)
[2016-09-08] MEDS: GABAPENTIN 100 MG CAPSULE PO SCH (10:27)
[2016-09-08] MEDS: FUROSEMIDE 20 MG TABLET PO SCH (10:27)
[2016-09-08] MEDS: CLOPIDOGREL 75 MG TABLET PO SCH (10:27)
[2016-09-08] MEDS: PRAMIPEXOLE 0.25 MG TABLET PO SCH ×3 (10:27→21:46)
[2016-09-08] MEDS: ESTROGENS, CONJUGATED 0.625 MG TABLET PO SCH (10:27)
[2016-09-08] MEDS: FLUoxetine HCL 20 MG CAPSULE PO SCH (10:28)
[2016-09-08] MEDS: traMADol 50 MG TABLET PO SCH ×3 (10:28→21:23)
[2016-09-08] MEDS: ASCORBIC ACID 500 MG TABLET PO SCH (10:28)
[2016-09-08] MEDS: NICOTINE 21 MG PATCH TOPICAL SCH (10:32)
--- NOTE | 2016-09-08 10:47 | Internal Med Progress Note ---
Medical - PN: Subj Patient information: Note initiated : 09/08/16 at 10:47 am Service Date, if different from initiated Date: [] Patient: Peter Lam 75 y/o M admitted on 09/06/16 for Hip Pain/Pneumonia, Low Hemoglobin. Chief Complaint: [] Interval history: 09/06-patient admitted with right hilar infiltrate ,shortness of breath severe anemia and hyperkalemia. History of ESRD on HD. Significant fluid retention with anasarca. Started on hemodialysis per nephrology. On broad antibiotic coverage. Continue aspiration precautions. Mental status change with curb 65 score 3 mandating hospitalization. Continue telemetry monitoring. Patient and family has been having discussions for transition to palliation and discontinuing hemodialysis. Discussions were underway with manufacturing cost estimator. However at this time uld want to proceed with full aggressive measures until further decisions. 09/07- continue antibiotic coverage. Ongoing hemodialysis per nephrology. Aggressive PT OT to evaluate her gait and safety. Wound care consulted for bilateral worsening wounds. Clinically stable. Continues to be confused. No overnight telemetry events. No concerns expressed by nursing staff. Patient denies chest pain shortness of breath overnight fever chills. 07/08- patient doing well. Status post 4 L fluid removal. On 4 L oxygen. white count at 7.5. No overnight fever chills nausea vomiting or concerns per staff. Nephrology on board. Potassium down to 4. Continue antibiotics, physical therapy. Wound care consulted - Constitutional Vitals: Vital Signs Temp Pulse Resp BP Pulse Ox 98.0 F 82 16 123/64 83 L 09/08/16 07:20 09/08/16 07:45 09/08/16 07:20 09/08/16 07:20 09/08/16 07:20 Period Temp Pulse Resp BP Sys/Mckay Pulse Ox Last 24 Hr 97.8 F-99.7 F 78-89 16-20 88-131/50-80 83-98 Intake and Output 09/07/16 09/08/16 09/08/16 21:59 05:59 13:59 Intake Total 213 / 213 200 / 200 Output Total 4175 / 4175 Balance -3962 / -3962 199 / 199 Weight 195 lb 195 lb Patient Weight 09/09/16 05:59 Weight 195 lb Intake & Output: Intake & Output 0209/08/16 09/08/16 21:59 05:59 13:59 Intake Total 213 / 213 200 / 200 Output Total 4175 / 4175 Balance -3962 / -3962 199 / 199 Weight 195 lb 195 lb Intake: IV 93 / 93 50 / 50 Sodium Chloride 0.9% 250 93 / 93 ml @ 20 mls/hr IV . [id number] ZITA Rx#:[id number] Dextrose 5% in Water 50 50 / 50 ml @ 100 mls/hr IV Q12H ZITA with Zosyn 2.25 gm Rx #:[id number] Oral 120 / 120 150 / 150 Output: Void Amount 75 / 75 # of times incontinent of urine Hemodialysis UF 4100 / 4100 Other: Meal Nourishment/Supplement Percent of Meal Consumed 10 # Bowel Movements 0 General appearance: cooperative, no acute distress Exam: intimately confused Episodes of aspiration after family gave patient a Doughnut Nonlabored breathing no telemetry events Medical - PN: Obj Da - Labs CBC & Chem 7: 09/08/16 04:05 09/08/16 04:05 Labs: Abnormal Lab Results 09/08/16 09/08/16 09/07/16 04:05 04:05 04:05 RBC 2.86 L Hgb 8.5 L Hct 27.1 L MCHC RDW 21.5 H Seg Neutrophils % 84 H Lymphocytes % 7 L RBC Morphology Abnorm A Polychromasia 2+ A Anisocytosis 2+ A Ovalocytes 2+ A Potassium 5.6 H Carbon Dioxide 31 H BUN 45 H Creatinine 3.6 H 5.3 H* Glucose 57 L Calcium 8.1 L 7.8 L Phosphorus 5.9 H 9.2 H* GGT 6 L Total Protein 5.4 L 5.1 L Albumin 3.0 L Globulin 1.9 L 09/07/16 04:05 RBC 2.33 L Hgb 6.9 L* Hct 22.7 L MCHC 30.3 L RDW 23.2 H Seg Neutrophils % 82 H Lymphocytes % 6 L RBC Morphology Abnorm A Polychromasia Anisocytosis 2+ A Ovalocytes Potassium Carbon Dioxide BUN Creatinine Glucose Calcium Phosphorus GGT Total Protein Albumin Globulin Meds: Medications Acetaminophen (Tylenol) 650 mg PO Q4-6HP PRN PRN Reason: PAIN/FEVER > 101 Albuterol Sulfate (Ventolin) 1 puff INH Q4HP PRN PRN Reason: Shortness Of Breath Ascorbic Acid (Vitamin C) 250 mg PO DAILY [facility] Last Admin: 09/08/16 10:28 Dose: Not Given Bupropion HCl (Wellbutrin Sr) 150 mg PO BID [facility] Last Admin: 09/08/16 10:19 Dose: Not Given Calcium Carbonate/Glycine (Tums) 750 mg PO AC [facility] Last Admin: 09/08/16 08:07 Dose: Not Given Clopidogrel Bisulfate (Plavix) 75 mg PO DAILY [facility] Last Admin: 09/08/16 10:27 Dose: Not Given Dextrose (Dextrose 50%) 0 ml IV UD PRN PRN Reason: Hypoglycemia Last Admin: 09/07/16 07:26 Dose: 25 ml Diagnostic Test (Pha) (Accu-Chek) 1 each FS ACHS [facility] Last Admin: 09/08/16 08:05 Dose: 1 each Estrogens Conjugated (Premarin) 5 mg PO DAILY [facility] Last Admin: 09/08/16 10:27 Dose: Not Given Fluoxetine HCl (Prozac) 40 mg PO DAILY [facility] Last Admin: 09/08/16 10:28 Dose: Not Given Furosemide (Lasix) 20 mg PO DAILY [facility] Last Admin: 09/08/16 10:27 Dose: Not Given Gabapentin (Neurontin) 100 mg PO DAILY [facility] Last Admin: 09/08/16 10:27 Dose: Not Given Heparin Sodium (Porcine) (Heparin) 5,000 unit SQ Q12 [facility] Last Admin: 09/08/16 10:26 Dose: 5,000 unit Hydromorphone HCl (Dilaudid) 0 mg IV Q4HP PRN PRN Reason: Pain Last Admin: 09/08/16 07:45 Dose: 0.5 mg Piperacillin Sod/Tazobactam (Sod 2.25 gm/ Dextrose) 50 mls @ 100 mls/hr IV Q12H [facility] Last Admin: 09/08/16 09:30 Dose: 100 mls/hr Vancomycin HCl 1,500 mg/ (Sodium Chloride) 500 mls @ 333.3 mls/hr IV ONCE@1800 ONE Stop: 09/08/16 19:30 Insulin Human Lispro (Humalog) 0 unit SQ ACHS ZITA PRN Reason: Protocol Last Admin: 09/08/16 08:06 Dose: Not Given Morphine Sulfate (Morphine) 15 mg PO Q4HP PRN PRN Reason: 338.29 Last Admin: 09/08/16 01:30 Dose: 15 mg Nicotine (Nicoderm) 21 mg TOPICAL DAILY@1000 [facility] Last Admin: 09/08/16 10:32 Dose: 21 mg Ondansetron HCl (Zofran) 4 mg IV Q4-6HP PRN PRN Reason: Nausea And Vomiting Last Admin: 09/08/16 07:50 Dose: 4 mg Budesonide/Formoterol Fumarate [Symbicort] 160/4.5 Mcg Inhaler 2 dose INH BID [facility] Last Admin: 09/08/16 10:27 Dose: Not Given Pramipexole Dihydrochloride (Mirapex) 0.5 mg PO TID [facility] Last Admin: 09/08/16 10:27 Dose: Not Given Senna/Docusate Sodium (Senna Plus Tablet) 1 tab PO [facility] Last Admin: 09/07/16 21:09 Dose: Not Given Sevelamer Carbonate (Renvela) 800 mg PO TIDAC [facility] Last Admin: 09/08/16 08:10 Dose: Not Given Sodium Chloride (Saline Flush) 10 ml IV Q8 [facility] Last Admin: 09/08/16 09:30 Dose: 10 ml Tramadol HCl (Ultram) 50 mg PO TID [facility] Last Admin: 09/08/16 10:28 Dose: Not Given Trazodone HCl (Desyrel) 50 mg PO [facility] Last Admin: 09/07/16 20:18 Dose: 50 mg Medical - PN: A/P - Time Spent With Patient Total time spent is greater than 50% in coordination of care (as documented) at patient's floor/unit and/or counseling patient: 25 - 35 minutes (1) Acute respiratory failure with hypoxia Status: Acute Assessment and plan: * Acute hypoxic respiratory failure-on 4 L oxygen. Secondary to pneumonia * Nosocomial versus aspiration pneumonia-continue vancomycin , Zosyn and Levaquin. Await cultures. Curb 65 score 3 with mental status change * mental status change secondary to above.gradual improvement noted * Bilateral lower extremity wounds-Wound care managing * Recurrent falls- Continue aggressive PT OT for gait eval * Hyperkalemia resolved post hemodialysis * ESRD -on hemodialysis per nephrology * anxiety-home meds * DM type II-prandial insulin * due to prophylaxis-heparin Plan * continue ABX coverage * HD per nephrology * continue wound care per imaging specialist * PT OT * Pre-existing medical condition management as above * aspiration precautions Current Visit: Yes Medical - PN: Qual - VTE Deep Vein Thrombosis/Pulmonary Embolism Present on Admission: No
[2016-09-08] MEDS: ALBUTEROL SULFATE 2.5 MG/3 ML NEBULIZER NEB PRN (15:35)
[2016-09-08] MEDS ORDERED: VANCOMYCIN 1,500 MG in 0.9 % SODIUM CHLORIDE 500 ML IV ONE (18:00)
--- NOTE | 2016-09-08 18:07 | General Surgery Progress Note ---
Subjective Patient reports: no new complaints, feels better, tolerating a regular diet, other (Undergoing hemodialysis. ) Narrative: Note initiated : 09/08/16 at 6:05 pm Service Date, if different from initiated Date: [] Patient: Peter Lam 75 y/o M admitted on 09/06/16 for Hip Pain/Pneumonia, Low Hemoglobin. Chief Complaint: [] Objective Temp Pulse Resp BP Pulse Ox 98.1 F 97 H 16 125/65 96 09/08/16 17:00 09/08/16 17:35 09/08/16 15:59 09/08/16 17:35 09/08/16 15:59 AVSS, NSR AND o2 Sats over 90 % Dressings both legs and left elbow CDI To be changed 3 x week. Patient seen with Corinne FALCON and progress reviewed. Continue present treatment. Will follow. - Additional Data Intake & Output - Last 24 hours: Intake & Output 09/06/16 09/07/16 09/08/16 09/09/16 05:59 05:59 05:59 05:59 Intake Total 700 / 700 1143 / 1143 50 / 50 Output Total 0 / 0 89535 / 53304 591 / 591 Balance 700 / 700 -40683 / -81919 -541 / -541 Weight 201 lb 11.2 oz 195 lb 195 lb - Labs 09/08/16 04:05 09/08/16 04:05 Diabetes panel 09/08/16 Range/Units 04:05 Sodium 139 (133-145) mmol/L Potassium 4.0 (3.3-5.1) mmol/L Chloride 98 (96-108) mmol/L Carbon Dioxide 31 H (22-30) mmol/L BUN 20 (8-23) mg/dl Creatinine 3.6 H (0.7-1.2) mg/dl Glucose 75 (70-105) mg/dL Calcium 8.1 L (8.6-10.4) mg/dl AST 13 (0-37) U/l ALT 9 (0-40) U/l Alkaline Phosphatase 63 (39-117) U/L Total Protein 5.4 L (5.9-8.4) gm/dL Albumin 3.0 L (3.2-5.2) gm/dL Triglycerides 130 (<150) mg/dl Calcium panel 09/08/16 Range/Units 04:05 Calcium 8.1 L (8.6-10.4) mg/dl Phosphorus 5.9 H (2.7-4.5) mg/dL Albumin 3.0 L (3.2-5.2) gm/dL Pituitary panel 09/08/16 Range/Units 04:05 Sodium 139 (133-145) mmol/L Potassium 4.0 (3.3-5.1) mmol/L Chloride 98 (96-108) mmol/L Carbon Dioxide 31 H (22-30) mmol/L BUN 20 (8-23) mg/dl Creatinine 3.6 H (0.7-1.2) mg/dl Glucose 75 (70-105) mg/dL Calcium 8.1 L (8.6-10.4) mg/dl Adrenal panel 09/08/16 Range/Units 04:05 Sodium 139 (133-145) mmol/L Potassium 4.0 (3.3-5.1) mmol/L Chloride 98 (96-108) mmol/L Carbon Dioxide 31 H (22-30) mmol/L BUN 20 (8-23) mg/dl Creatinine 3.6 H (0.7-1.2) mg/dl Glucose 75 (70-105) mg/dL Calcium 8.1 L (8.6-10.4) mg/dl Total Bilirubin 0.4 (0.0-1.0) mg/dL AST 13 (0-37) U/l ALT 9 (0-40) U/l Alkaline Phosphatase 63 (39-117) U/L Total Protein 5.4 L (5.9-8.4) gm/dL Albumin 3.0 L (3.2-5.2) gm/dL Medical - PN: A/P - Time Spent With Patient Total time spent is greater than 50% in coordination of care (as documented) at patient's floor/unit and/or counseling patient: (1) Abrasion Status: Chronic Current Visit: No
[2016-09-08] MEDS: DEXTROSE 50% 50 ML VIAL IV PRN (21:23)
[2016-09-08] MEDS: traZODone HCL 50 MG TABLET PO SCH (21:25)
[2016-09-08] MEDS: SENNOSIDES/DOCUSATE SODIUM 1 TAB TABLET PO SCH (21:28)
[2016-09-09] MEDS: HYDROmorphone 2 MG/ML SYRINGE IV PRN ×4 (02:26→12:43)
[2016-09-09] MEDS: 0.9 % SODIUM CHLORIDE 10 ML SYRINGE IV SCH ×2 (05:18→09:51)
[2016-09-09 05:34] LABS: Mean Cell Volume 95.3 fL (80.0-100.0); Mean Corpuscular HGB Conc 30.9 g/dL (31.0-36.0); Mean Corpuscular Hemoglobin 29.4 pg (26.0-34.0); Platelet Count 153 K/mcL (140-440); RBC 3.06 M/mcL (4.50-5.90); Red Cell Distribution Width 20.8 % (11.5-14.5)
[2016-09-09 06:04] LABS: ALT/SGPT 9 U/l (0-40); Albumin 3.3 gm/dL (3.2-5.2); Albumin/Globulin Ratio 1.6 (1.0-2.3); Alkaline Phosphatase 67 U/L (39-117); Bilirubin,Direct < 0.2 mg/dL (0.0-0.3); Blood Urea Nitrogen 11 mg/dl (8-23); Gamma Glutamyl Transpeptidase 6 U/L (8-61); Magnesium 2.1 mg/dL (1.6-2.5); Phosphorous 6.3 mg/dL (2.7-4.5); Uric Acid 2.8 mg/dL (2.5-8.0)
[2016-09-09] MEDS: CALCIUM CARBONATE 500 MG TAB.CHEW PO SCH (07:00)
[2016-09-09 07:03] LABS: Anisocytosis 3+ (NONE SEEN); Band Neutrophils % 1 % (0-10); Basophils % (Manual) 2 % (0-2); Lymphocytes % 5 % (15-49); Monocytes % (Manual) 5 % (1-9); Ovalocytes 2+ (NONE SEEN); Platelet Estimate NORMAL (NORMAL); RBC Morphology ABNORM (NORMAL); Segmented Neutrophils % 87 % (38-78)
[2016-09-09] MEDS: SEVELAMER 800 MG TABLET PO SCH (07:30)
[2016-09-09] MEDS: INSULIN LISPRO 1 UNIT/0.01 ML UNIT SQ SCH (08:08)
[2016-09-09] MEDS: ALBUTEROL SULFATE 2.5 MG/3 ML NEBULIZER NEB PRN (08:37)
[2016-09-09] MEDS: PIPERACILLIN SODIUM/TAZOBACTAM 2.25 GM in DEXTROSE 5% IN WATER 50 ML IV SCH (09:30)
--- NOTE | 2016-09-09 09:33 | Internal Med Progress Note ---
Medical - PN: Subj Patient information: Note initiated : 09/09/16 at 9:31 am Service Date, if different from initiated Date: [] Patient: Peter Lam 75 y/o M admitted on 09/06/16 for Hip Pain/Pneumonia, Low Hemoglobin. Chief Complaint: [] Interval history: 09/06-patient admitted with right hilar infiltrate ,shortness of breath severe anemia and hyperkalemia. History of ESRD on HD. Significant fluid retention with anasarca. Started on hemodialysis per nephrology. On broad antibiotic coverage. Continue aspiration precautions. Mental status change with curb 65 score 3 mandating hospitalization. Continue telemetry monitoring. Patient and family has been having discussions for transition to palliation and discontinuing hemodialysis. Discussions were underway with clinical research nurse coordinator. However at this time uld want to proceed with full aggressive measures until further decisions. 09/07- continue antibiotic coverage. Ongoing hemodialysis per nephrology. Aggressive PT OT to evaluate her gait and safety. Wound care consulted for bilateral worsening wounds. Clinically stable. Continues to be confused. No overnight telemetry events. No concerns expressed by nursing staff. Patient denies chest pain shortness of breath overnight fever chills. 09/08- patient doing well. Status post 4 L fluid removal. On 4 L oxygen. white count at 7.5. No overnight fever chills nausea vomiting or concerns per staff. Nephrology on board. Potassium down to 4. Continue antibiotics, physical therapy. Wound care consulted 09/09- patient critically ill. Blood gas 7.22/83. Confused and agitated and incoherent. Respiratory distress. ongoing ICU care. High risk mortality. Family conference today for goals of care. Patient is a no code and hence intubationcannot perform however high-risk persistent aspiration if started on noninvasive ventilation. - Constitutional Vitals: Vital Signs Temp Pulse Resp BP Pulse Ox 98.4 F 91 H 16 118/58 95 09/09/16 04:00 09/09/16 08:38 09/09/16 08:38 09/09/16 02:30 09/09/16 00:00 Period Temp Pulse Resp BP Sys/Mckay Pulse Ox Last 24 Hr 97 F-98.8 F 90-100 16-18 98-166/42-67 93-96 Intake and Output 09/08/16 09/09/16 09/09/16 21:59 05:59 13:59 Intake Total 550 / 550 Output Total 26449 / 27658 2800 / 2800 Balance -01346 / -93716 -2250 / -2250 Weight 193 lb 12.8 oz Intake & Output: Intake & Output 09/08/16 09/09/16 09/09/16 21:59 05:59 13:59 Intake Total 550 / 550 Output Total 65458 / 25990 2800 / 2800 Balance -89710 / -79673 -2250 / -2250 Weight 193 lb 12.8 oz Intake: IV 550 / 550 Dextrose 5% in Water 50 50 / 50 ml @ 100 mls/hr IV Q12H ZITA with Zosyn 2.25 gm Rx #:[id number] Sodium Chloride 0.9% 500 500 / 500 ml @ 333.3 mls/hr IV ONCE @1800 ONE with Vancomycin 1,500 mg Rx#:[id number] Output: Hemodialysis UF 06126 / 39522 2800 / 2800 General appearance: disheveled, moderate distress Exam: ncoherent and confused labored breathing Nondistended abdomen No telemetry events Medical - PN: Obj Da - Labs CBC & Chem 7: 09/09/16 04:16 09/09/16 04:16 Labs: Abnormal Lab Results 09/09/16 09/09/16 09/08/16 04:16 04:16 04:05 RBC 3.06 L Hgb 9.0 L Hct 29.2 L MCHC 30.9 L RDW 20.8 H Seg Neutrophils % 87 H Lymphocytes % 5 L RBC Morphology Abnorm A Polychromasia Few A Anisocytosis 3+ A Ovalocytes 2+ A Potassium Carbon Dioxide 31 H BUN Creatinine 2.6 H 3.6 H Glucose Calcium 7.8 L 8.1 L Phosphorus 6.3 H* 5.9 H GGT 6 L Total Protein 5.4 L 5.4 L Albumin 3.0 L Globulin 2.1 L 09/08/16 09/07/16 09/07/16 04:05 04:05 04:05 RBC 2.86 L 2.33 L Hgb 8.5 L 6.9 L* Hct 27.1 L 22.7 L MCHC 30.3 L RDW 21.5 H 23.2 H Seg Neutrophils % 84 H 82 H Lymphocytes % 7 L 6 L RBC Morphology Abnorm A Abnorm A Polychromasia 2+ A Anisocytosis 2+ A 2+ A Ovalocytes 2+ A Potassium 5.6 H Carbon Dioxide BUN 45 H Creatinine 5.3 H* Glucose 57 L Calcium 7.8 L Phosphorus 9.2 H* GGT 6 L Total Protein 5.1 L Albumin Globulin 1.9 L Meds: Medications Acetaminophen (Tylenol) 650 mg PO Q4-6HP PRN PRN Reason: PAIN/FEVER > 101 Albuterol Sulfate (Ventolin) 1 puff INH Q4HP PRN PRN Reason: Shortness Of Breath Albuterol Sulfate (Ventolin) 2.5 mg NEB Q4HP PRN PRN Reason: Shortness Of Breath Last Admin: 09/09/16 08:37 Dose: 2.5 mg Ascorbic Acid (Vitamin C) 250 mg PO DAILY [facility] Last Admin: 09/08/16 10:28 Dose: Not Given Bupropion HCl (Wellbutrin Sr) 150 mg PO BID [facility] Last Admin: 09/08/16 21:25 Dose: 150 mg Calcium Carbonate/Glycine (Tums) 750 mg PO AC [facility] Last Admin: 09/08/16 17:28 Dose: Not Given Clopidogrel Bisulfate (Plavix) 75 mg PO DAILY [facility] Last Admin: 09/08/16 10:27 Dose: Not Given Dextrose (Dextrose 50%) 0 ml IV UD PRN PRN Reason: Hypoglycemia Last Admin: 09/08/16 21:23 Dose: 50 ml Diagnostic Test (Pha) (Accu-Chek) 1 each FS ACHS [facility] Last Admin: 09/09/16 08:07 Dose: 1 each Estrogens Conjugated (Premarin) 5 mg PO DAILY [facility] Last Admin: 09/08/16 10:27 Dose: Not Given Fluoxetine HCl (Prozac) 40 mg PO DAILY [facility] Last Admin: 09/08/16 10:28 Dose: Not Given Furosemide (Lasix) 20 mg PO DAILY [facility] Last Admin: 09/08/16 10:27 Dose: Not Given Gabapentin (Neurontin) 100 mg PO DAILY [facility] Last Admin: 09/08/16 10:27 Dose: Not Given Heparin Sodium (Porcine) (Heparin) 5,000 unit SQ Q12 [facility] Last Admin: 09/08/16 21:23 Dose: 5,000 unit Hydromorphone HCl (Dilaudid) 0 mg IV Q4HP PRN PRN Reason: Pain Last Admin: 09/09/16 02:26 Dose: 0.5 mg Piperacillin Sod/Tazobactam (Sod 2.25 gm/ Dextrose) 50 mls @ 100 mls/hr IV Q12H [facility] Last Infusion: 09/08/16 22:30 Dose: Infused Insulin Human Lispro (Humalog) 0 unit SQ ACHS ZITA PRN Reason: Protocol Last Admin: 09/09/16 08:08 Dose: Not Given Morphine Sulfate (Morphine) 15 mg PO Q4HP PRN PRN Reason: 338.29 Last Admin: 09/08/16 18:39 Dose: 15 mg Nicotine (Nicoderm) 21 mg TOPICAL DAILY@1000 [facility] Last Admin: 09/08/16 10:32 Dose: 21 mg Ondansetron HCl (Zofran) 4 mg IV Q4-6HP PRN PRN Reason: Nausea And Vomiting Last Admin: 09/08/16 07:50 Dose: 4 mg Budesonide/Formoterol Fumarate [Symbicort] 160/4.5 Mcg Inhaler 2 dose INH BID [facility] Last Admin: 09/08/16 21:27 Dose: Not Given Pramipexole Dihydrochloride (Mirapex) 0.5 mg PO TID [facility] Last Admin: 09/08/16 21:46 Dose: Not Given Senna/Docusate Sodium (Senna Plus Tablet) 1 tab PO [facility] Last Admin: 09/08/16 21:28 Dose: Not Given Sevelamer Carbonate (Renvela) 800 mg PO TIDAC [facility] Last Admin: 09/08/16 21:26 Dose: Not Given Sodium Chloride (Saline Flush) 10 ml IV Q8 [facility] Last Admin: 09/09/16 05:18 Dose: Not Given Tramadol HCl (Ultram) 50 mg PO TID [facility] Last Admin: 09/08/16 21:23 Dose: 50 mg Trazodone HCl (Desyrel) 50 mg PO [facility] Last Admin: 09/08/16 21:25 Dose: 50 mg Medical - PN: A/P - Time Spent With Patient Total time spent is greater than 50% in coordination of care (as documented) at patient's floor/unit and/or counseling patient: Greater than 35 minutes (Critical care time) (1) Acute respiratory failure with hypoxia Status: Acute Assessment and plan: * Acute hypoxic hypercapnic respiratory failure-likely secondary to aspiration. on 6 L oxygen. not amenable to noninvasive ventilation due to risk of recurrent aspiration * Acute mental status change secondary to hypercapnia and underlying uremia. * Nosocomial versus aspiration pneumonia-no significant improvement despite vancomycin , Zosyn and Levaquin. * Bilateral lower extremity wounds-Wound care ongoing * Recurrent falls- physical therapy cannot perform in light of significant mental status changes and weakness * Hyperkalemia resolved post hemodialysis * ESRD -on hemodialysis per nephrology * anxiety-home meds * DM type II-prandial insulin * due to prophylaxis-heparin Plan * continue ABX coverage * family conference for control of care * serial ABGs and chest imaging * Continue HD per nephrology * continue wound care * Pre-existing medical condition management as above * aspiration precautions Current Visit: Yes Medical - PN: Qual - VTE Deep Vein Thrombosis/Pulmonary Embolism Present on Admission: No
--- NOTE | 2016-09-09 09:38 | XRay Report ---
CLINICAL INFORMATION: Shortness of breath COMPARISON: 09/06/2016 FINDINGS: The heart is moderately enlarged - slightly increased. Mediastinum is unremarkable. The pulmonary vessels are mildly distended. Moderate sized left and small right basilar infiltrates have developed. Small left pleural effusion noted IMPRESSION: Moderate left and small right basilar infiltrates and small left pleural effusion Mild underlying CHF or volume overload Interpreted and Authenticated by: Arsenio Carpenter 09/09/16
[2016-09-09] MEDS: PRAMIPEXOLE 0.25 MG TABLET PO SCH (09:40)
[2016-09-09] MEDS: ASCORBIC ACID 500 MG TABLET PO SCH (09:40)
[2016-09-09] MEDS: buPROPion 150 MG TAB.SR.12H PO SCH (09:40)
[2016-09-09] MEDS: FUROSEMIDE 20 MG TABLET PO SCH (09:40)
[2016-09-09] MEDS: FLUoxetine HCL 20 MG CAPSULE PO SCH (09:40)
[2016-09-09] MEDS: HEPARIN 5,000 UNIT/ML VIAL SQ SCH (09:40)
[2016-09-09] MEDS: Budesonide/Formoterol Fumarate [Symbicort] 160/4.5 mcg Inhaler INH SCH (09:40)
[2016-09-09] MEDS: GABAPENTIN 100 MG CAPSULE PO SCH (09:40)
[2016-09-09] MEDS: CLOPIDOGREL 75 MG TABLET PO SCH (09:40)
[2016-09-09] MEDS: traMADol 50 MG TABLET PO SCH (09:40)
[2016-09-09] MEDS: NICOTINE 21 MG PATCH TOPICAL SCH (09:40)
[2016-09-09] MEDS: ESTROGENS, CONJUGATED 0.625 MG TABLET PO SCH (09:40)
[2016-09-09] MEDS ORDERED: LACTOPEROXI/GLUC OXID/POT THIO 1 EACH GEL..EA. TOPICAL PRN (11:03)
[2016-09-09] MEDS ORDERED: LORazepam 2 MG/ML VIAL IV PRN (11:03)
[2016-09-09] MEDS ORDERED: ONDANSETRON ODT 4 MG TABLET SL PRN (11:03)
[2016-09-09] MEDS ORDERED: 0.9 % SODIUM CHLORIDE 10 ML SYRINGE IV SCH (14:00)
--- NOTE | 2016-09-10 07:18 | Discharge Summary ---
DATE OF ADMISSION: 09/06/2016 DATE OF DISCHARGE: 09/09/2016 DATE OF : 09/09/2016 CAUSE OF : Hypoxic respiratory failure. EVENTS LEADING TO CAUSE OF : 1. Acute hypoxic respiratory failure secondary to progressive aspiration pneumonia. 2. Nosocomial versus aspiration pneumonia. 3. End-stage renal disease on hemodialysis. The patient was admitted with significant shortness of breath, mental status change and nosocomial pneumonia. He was started on aggressive management including antibiotics and hemodialysis; however, , Leyda decided after 48 hours of intervention to discontinue all aggressive measures in light of deteriorating status. Shortly after stopping antibiotics, the patient succumbed to progressive respiratory failure and on the evening of 09/09. AA:ary Job ID: [id number] Doc ID: [id number] Livan Tavarez MD
== END 2016-09-09 13:55 | disposition expired ==
LOC: ED 08:53 → ICU 15:56
PROVIDERS: ADMIT Internal Medicine; ATTEND Internal Medicine